=== PATIENT | female | born 1995 | race American Indian/Alaskan Native ===

== ENCOUNTER 2017-08-18 20:57 | Emergency (ER) | payer MEDICAID ==
[2017-08-18 21:26] LABS: Basophils % (Auto) 0.4 % (0.0-1.8); Eosinophils % (Auto) 0.1 % (0.0-4.3); Hematocrit 39.4 % (30.3-42.9); Hemoglobin 12.2 gm/dl (10.1-14.3); Mean Corpuscular HGB Conc 31 % (30-34); Mean Corpuscular Volume 78 fl (79-97); Platelet Count 187 K/mm3 (140-440); Red Blood Count 5.04 M/mm3 (3.65-5.03); Red Cell Distribution Width 14.5 % (13.2-15.2); White Blood Count 12.3 K/mm3 (4.5-11.0)
[2017-08-18 21:36] LABS: Mean Corpuscular Hemoglobin 24 pg (28-32)
[2017-08-18 21:54] LABS: Anion Gap 21 mmol/L; BUN/Creatinine Ratio 13; Blood Urea Nitrogen 8 mg/dL (7-17); Calcium 9.3 mg/dL (8.4-10.2); Carbon Dioxide 22 mmol/L (22-30); Chloride 96.4 mmol/L (98-107); Glucose 103 mg/dL (65-100); Potassium 3.5 mmol/L (3.6-5.0); Sodium 136 mmol/L (137-145)
[2017-08-19 00:48] LABS: Bilirubin,Urine NEG (Negative); Blood,Urine NEG (Negative); Ketones,Urine 80 mg/dL (Negative); Leukocyte Esterase,Urine NEG (Negative); Mucus,Urine 3+ /HPF; Nitrite,Urine NEG (Negative); Urobilinogen,Urine < 2.0 mg/dL (<2.0)
[2017-08-19 00:49] LABS: WBC,Urine < 1.0 /HPF (0.0-6.0)
[2017-08-19 08:10] VITALS: BP 131/83
[2017-08-19] MEDS ORDERED: ZOFRAN IV ONE (10:18)
[2017-08-19] MEDS ORDERED: NACL 0.9% 1000 ML 1,000 ML IV ONE ×2 (10:18→12:40)
--- NOTE | 2017-08-19 10:28 | Emergency Department Report ---
HPI - General Chief Complaint: Nausea/Vomiting/Diarrhea Time Seen by Provider: 08/19/17 10:01 - HPI HPI: This is a 22-year-old -[place] female who presents to the emergency department with complaint of nausea and vomiting since yesterday. She tried taking a Zofran ODT but vomited that up as well. She has an appointment with her primary care physician on Thursday. The patient says that she had some problems with nausea, vomiting and some abdominal pain 3 weeks ago and was at a [facility] where she was given medication for pain, Bentyl, meds for UTI and bacterial vaginosis. She says that she just started taking some of the Bentyl but did not take the other medications yet as they were expensive to fill. She denies any current dysuria or vaginal bleeding or discharge. She otherwise denies any past medical history. No recent travel or sick contacts at home. ED Past Medical Hx - Past Medical History Hx Hypertension: No Hx Congestive Heart Failure: No Hx Diabetes: No Hx Deep Vein Thrombosis: No Hx Renal Disease: No Hx Sickle Cell Disease: No Hx Seizures: No Hx Asthma: No Hx COPD: No Hx HIV: No - Surgical History Past Surgical History?: No - Social History Smoking Status: Current Some Day Smoker Substance Use Type: Alcohol - Medications Home Medications: Home Medications Medication Instructions Recorded Confirmed Last Taken Type Famotidine [Pepcid] 40 mg PO QHS #10 tablet 09/27/13 01/24/15 Unknown Rx Hyoscyamine Subl [Levsin Sl] 0.125 mg PO Q4-6H PRN #12 tablet 09/27/13 01/24/15 Unknown Rx Lansoprazole (Nf) [Prevacid (Nf)] 30 mg PO QPM #15 capsule 06/16/14 01/24/15 Unknown Rx Ondansetron [Zofran Odt] 4 mg PO Q6H PRN #10 tab.rapdis 06/16/14 01/24/15 Unknown Rx Promethazine [Phenergan] 25 mg PO Q6H PRN #20 tablet 06/16/14 01/24/15 Unknown Rx Promethazine [Phenergan] 25 mg FL Q8H PRN #10 supp.rect 08/19/17 Unknown Rx ED Review of Systems ROS: Stated complaint: NAUSEA AND VOMITING Other details as noted in HPI Comment: All other systems reviewed and negative Constitutional: denies: chills, fever Eyes: denies: eye pain, eye discharge, vision change ENT: denies: ear pain, throat pain Respiratory: denies: cough, shortness of breath, wheezing Cardiovascular: denies: chest pain, palpitations Gastrointestinal: nausea, vomiting Genitourinary: denies: urgency, dysuria, discharge Musculoskeletal: denies: back pain, joint swelling, arthralgia Skin: denies: rash, lesions Neurological: denies: headache, weakness, paresthesias Physical Exam - Physical Exam Vital Signs: Vital Signs 08/18/17 08/19/17 08/19/17 20:59 04:47 05:57 Temperature 98.5 F 98.7 F Pulse Rate 74 78 Respiratory 18 17 20 Rate Blood Pressure 136/79 Blood Pressure 121/86 [Left] O2 Sat by Pulse 97 99 Oximetry 08/19/17 07:45 Temperature 98.5 F Pulse Rate 62 Respiratory 16 Rate Blood Pressure Blood Pressure 131/83 [Left] O2 Sat by Pulse 99 Oximetry Physical Exam: GENERAL: The patient is well-developed well-nourished. HENT: Normocephalic. Atraumatic. Patient has moist mucous membranes. EYES: Extraocular motions are intact. Pupils equal reactive to light bilaterally. NECK: Supple. Trachea is midline. CHEST/LUNGS: Clear to auscultation. There is no respiratory distress noted. HEART/CARDIOVASCULAR: Regular. There is no tachycardia. There is no gallop rub or murmur. ABDOMEN: Abdomen is soft, nontender. Patient has normal bowel sounds. There is no abdominal distention. SKIN: Skin is warm and dry. NEURO: The patient is awake, alert, and oriented. The patient is cooperative. The patient has no focal neurologic deficits. The patient has normal speech. MUSCULOSKELETAL: There is no tenderness or deformity. There is no limitation range of motion. There is no evidence of acute injury. ED Course Vital Signs 08/18/17 08/19/17 08/19/17 20:59 04:47 05:57 Temperature 98.5 F 98.7 F Pulse Rate 74 78 Respiratory 18 17 20 Rate Blood Pressure 136/79 Blood Pressure 121/86 [Left] O2 Sat by Pulse 97 99 Oximetry 08/19/17 07:45 Temperature 98.5 F Pulse Rate 62 Respiratory 16 Rate Blood Pressure Blood Pressure 131/83 [Left] O2 Sat by Pulse 99 Oximetry ED Medical Decision Making - Lab Data Result diagrams: 08/18/17 21:07 08/18/17 21:07 - Radiology Data Radiology results: image reviewed interpreted by me: Diamox A shows nonspecific nonobstructive bowel gas. - Medical Decision Making 22-year-old female presents with nausea and vomiting. Vital signs stable including being afebrile. Labs show dehydration with 80 ketones in the urine. She was given IV fluid resuscitation and antiemetics. She was reevaluated multiple times over multiple hours and says she is feeling much better. She was able to display the ability to orally rehydrate herself. She appears safe for discharge home. She did not have any abdominal pain but the abdominal x- ray also shows some nonspecific nonproductive bowel gas. She was given referral to primary care and sent home with Phenergan suppositories, as she R he has Zofran ODT at home. She will return to the ER with any worsening of her symptoms or any acute distress. - Differential Diagnosis gastroenteritis, food poisoning, colitis, celiac Critical Care Time: No Critical care attestation.: If time is entered above; I have spent that time in minutes in the direct care of this critically ill patient, excluding procedure time. ED Disposition Clinical Impression: Dehydration Nausea & vomiting Qualifiers: Vomiting type: unspecified Vomiting Intractability: non-intractable Qualified Code(s): R11.2 - Nausea with vomiting, unspecified Disposition: DC-01 TO HOME OR SELFCARE Is pt being admited?: No Condition: Stable Instructions: Dehydration (ED), Acute Nausea and Vomiting (ED) Additional Instructions: Increase your oral rehydration. You can use the Zofran that you previously were prescribed but I have also given a prescription for some Phenergan, which can be taken as a rectal suppository, if you are unable to keep down the Zofran. Please follow-up with your primary care physician in the next few days. Return to the emergency department with any intractable vomiting, inability to stay hydrated, or any acute distress. Prescriptions: Promethazine [Phenergan] 25 mg FL Q8H PRN #10 supp.rect PRN Reason: Nausea Referrals: PRIMARY MD ROSE MARY [Primary Care Provider] - 3-5 Days LOU PARRY MD [Staff Physician] - 3-5 Days [facility] [Outside] - 3-5 Days Forms: Work/School Release Form(ED) Time of Disposition: 13:43
--- NOTE | 2017-08-19 16:28 | XRay Report ---
ABDOMEN TWO VIEWS: 08/19/17 10:18:00 CLINICAL: Nausea and vomiting. COMPARISON:None. FINDINGS: Supine upright views demonstrate a normal bowel gas pattern. No distended bowel and no air-fluid levels. No mass or suspicious calcifications. Several phleboliths in the pelvis. Distal ureteral calculi cannot be excluded. The bones and soft tissues are normal. IMPRESSION: Negative abdomen.
== END 2017-08-19 14:09 | disposition home or self-care (01) ==
LOC: ED 20:57
DX: R11.2 Nausea with vomiting, unspecified (principal); E86.0 Dehydration; F17.200 Nicotine dependence, unspecified, uncomplicated
CPT/HCPCS: 36415; 74020; 80048; 81001; 82962; 84703; 85025; 96361; 96374; 99284; J2405; J7030